=== PATIENT | male | born 1935 | race Caucasian/White ===

== ENCOUNTER 2016-12-11 06:07 | Inpatient (IN) ==
[2016-12-11] MEDS ORDERED: ASPIRIN PO STA (06:18)
[2016-12-11 06:35] LABS: MANUAL DIFF NEEDED? NO
[2016-12-11 06:40] LABS: BASO% 0.3 % (0.0-0.8); EOS# 0.14 X1000 (0.0-0.7); EOS% 1.2 % (0.0-10.0); HEMATOCRIT 42.2 % (42.0-52.0); HEMOGLOBIN 14.5 g/dL (14.0-18.0); LYMPH# 2.78 X1000 (1.2-3.4); LYMPH% 23.8 % (20.5-51.1); MCH 32.7 PG (27-31); MCHC 34.4 g/dL (33-37); MONO# 1.21 X1000 (0.11-0.59); MONO% 10.4 % (1.7-9.3); MPV 10.5 FL (7.4-10.4); NEUT% 64.3 % (42.2-75.2); PLT 130 X1000 (130-400); RBC 4.44 XMIL (4.7-6.1)
[2016-12-11 06:48] LABS: INR 0.94; PROTIME 9.8 Seconds (9.2-11.7); PTT 24.2 Seconds (22.0-36.0)
--- NOTE | 2016-12-11 06:57 | EKG Report ---
Test Performed on : 12/11/2016 06:05:12 AM Test Reason : Chest Pain Blood Pressure : / mmHG Vent. Rate : 059 BPM Atrial Rate : 059 BPM P-R Int : 174 ms QRS Dur : 092 ms QT Int : 416 ms P-R-T Axes : 051 069 056 degrees QTc Int : 411 ms Sinus bradycardia. Otherwise normal ECG When compared with ECG of 12-JUL-2011 21:36, No significant change was found Unconfirmed Result
[2016-12-11 07:00] LABS: AGAP 14; ALBUMIN 3.5 g/dL (3.5-5.0); ALKALINE PHOSPHATASE 71 U/L (32-122); BUN 21 mg/dL (8-22); CALCIUM 9.5 mg/dL (8.8-10.2); CHLORIDE 103 mmol/L (98-107); CK PROFILE 28 U/L (24-204); COSMO 288; GOT 21 U/L (10-34); GPT 29 U/L (10-44); LIPASE 43 U/L (13-60); MAGNESIUM 2.1 mg/dL (1.5-2.7); POTASSIUM 4.4 mmol/L (3.5-5.1); SODIUM 142 mmol/L (136-145); TCO2 25 mmol/L (25-35); TOTAL BILIRUBIN 0.53 mg/dL (0.20-1.00); TOTAL PROTEIN 6.7 g/dL (6.3-8.3)
--- NOTE | 2016-12-11 07:09 | Diag Imaging Result Doc PS360 ---
EXAM: CHEST-PORTABLE HISTORY: CP TECHNIQUE: Portable upright COMPARISON: 07/12/2011 FINDINGS: The lungs are well expanded. The heart is not enlarged. The vessels are not distended. No pneumonia. No pleural effusions identified. There calcified mediastinal nodes. No free air beneath the diaphragm. IMPRESSION: Negative chest. Electronically signed by Brian Palacios 12/11/2016 7:07 AM
[2016-12-11 07:23] LABS: URINE MICRO REVIEW NEEDED? NO; URINE SOURCE CLEAN CATCH
[2016-12-11 07:26] LABS: BILIRUBIN URINE NEGATIVE (NEGATIVE); BLOOD URINE NEGATIVE (NEGATIVE); COLOR YELLOW; GLUCOSE URINE NEGATIVE (NEGATIVE); LEUKOCYTES URINE SMALL (NEGATIVE); NITRITE URINE NEGATIVE (NEGATIVE); PROTEIN URINE TRACE mg/dL (NEGATIVE); TURBIDITY URINE HAZY (CLEAR); UROBILINOGEN URINE NORMAL (NORMAL)
[2016-12-11 07:27] LABS: UR EPITHELIAL CELLS <10 /HPF (<10); URINE BACTERIA NEGATIVE /HPF; URINE CULTURE NEEDED? YES; URINE RBC <10 /HPF (<10); URINE WBC <10 /HPF (<10)
[2016-12-11] MEDS ORDERED: NITROGLYCERIN TOP ONE (07:37)
--- NOTE | 2016-12-11 07:38 | PROVIDER DOCUMENTATION ---
HPI-Chest Pain - General Chief Complaint: Shoulder Pain Stated Complaint: CP Time Seen by Provider: 12/11/16 06:09 Source: patient, family Allergies/Adverse Reactions: Patient Allergies Allergy/AdvReac Type Severity Reaction Status Date / Time Penicillins Allergy SWELLING Verified 12/11/16 06:21 Home Medications: Home Medication List Medication Instructions Recorded Confirmed Last Taken Type Levothyroxine Sodium 50 mcg PO DAILY 12/11/16 12/11/16 12/10/16 History [Levothyroxine Sodium] - History of Present Illness-CP Nature of Presenting Problem: 81 yo M reports work up at 4AM with b/l shoulder joint pain, but his L sided CP started afterwards when he got up and took his dog out. Pt was standing in his yard when the CP started, diaphoretic with heart racing. No LOC and no fall. No cardiac history. Normal stress test X 5 years ago. Pt is deaf since childhood. Location: reports: shoulder, other (See above) Chest Pain Radiation: reports: no radiation Quality of Pain: reports: aching, pressure Severity in ED: mild, moderate Onset/Duration: 1-3 hours ago Timing: still present, improving Context/Activities at Onset: reports: none, light activity Modifying Factors: improves with: nothing Associated Symptoms: reports: diaphoresis, fatigue, weakness. denies: abdominal pain, edema, nausea, shortness of breath, vomiting Nitro Today/Relief: provided by ED Aspirin Treatment Today: provided by ED Prior Chest Pain/Cardiac Workup: reports: stress test Similar Symptoms Previously?: No Recently Seen Here or By Another Healthcare Provider: No Review of Systems - Adult - REVIEW OF SYSTEMS - ADULT Constitutional: reports: see venus BOOGIE. denies: chills, fever Eyes: reports: no symptoms reported Ears, Nose, Mouth & Throat: reports: no symptoms reported Cardiovascular: reports: chest pain. denies: heart murmur, poor circulation, syncope Respiratory: reports: no symptoms reported Gastrointestinal: reports: no symptoms reported Genitourinary: reports: no symptoms reported Musculoskeletal: reports: no symptoms reported Integumentary: reports: no symptoms reported Neurological: reports: no symptoms reported Psychiatric: reports: no symptoms reported Endocrine: reports: no symptoms reported Hematologic/Lymphatic: reports: no symptoms reported Allergic/Immunologic: reports: no symptoms reported All Other Systems: Reviewed and Negative Past History - Adult - PAST MEDICAL HISTORY-ADULT Review of Records: reports: Old Records Reviewed, Nursing Assessment Review, Medications Reviewed Major Childhood Illnesses: reports: denies history Physical Exam-General - PHYSICAL EXAM-ADULT Initial Vital Signs Reviewed: Yes - CONSTITUTIONAL General Appearance: appears well, alert, no apparent distress - EYES Eyes: PERRL/EOMI, pink conjunctivae - HEAD, EARS, NOSE, MOUTH & THROAT HENMT: normocephalic/atraumatic, moist mucous membranes - NECK Neck: non-tender, full range of motion - RESPIRATORY Respiratory: chest non-tender, lungs clear, normal breath sounds, no pleuratic chest pain, no respiratory distress, no accessory muscle use - CARDIOVASCULAR Cardiovascular: normal peripheral pulses, regular rate, rhythm, no edema - GASTROINTESTINAL (ABDOMEN) Abdominal Exam: normal bowel sounds, non tender, soft, no organomegaly - MUSCULOSKELETAL Back Exam: normal inspection, no CVA tenderness, no vertebral tenderness Extremity: normal range of motion, non-tender, normal gait, normal inspection - SKIN Integumentary: normal color, normal turgor - NEUROLOGIC Neurologic: no motor/sensory deficits - PSYCHIATRIC Psych/Mental Status: normal mood/affect, normal thought content, normal thought process, oriented x 3 Progress - PLAN OF CARE/RESULTS Progress/Plan/Lab Results: Vital Signs - 8 hr 12/11/16 06:11 12/11/16 06:19 12/11/16 07:00 Temperature 97.6 F Pulse Rate 63 62 62 Respiratory Rate 16 16 15 Blood Pressure 132/79 132/79 125/68 O2 Sat by Pulse Oximetry 100 99 99 Laboratory Results - last 24 hr 12/11/16 12/11/16 12/11/16 06:20 06:20 06:20 WBC 11.68 H RBC 4.44 L Hgb 14.5 Hct 42.2 MCV 95.0 MCH 32.7 H MCHC 34.4 RDW Std Deviation 15.9 H Plt Count 130 MPV 10.5 H Neut % (Auto) 64.3 Lymph % (Auto) 23.8 Robeson % (Auto) 10.4 H Eos % (Auto) 1.2 Baso % (Auto) 0.3 Neut # (Auto) 7.52 H Lymph # (Auto) 2.78 Robeson # (Auto) 1.21 H Eos # (Auto) 0.14 Baso # (Auto) 0.03 PT INR PTT (Actin FS) Sodium 142 Potassium 4.4 Chloride 103 Carbon Dioxide 25 Anion Gap 14 BUN 21 Creatinine 0.8 Estimated GFR/1.73 m2 > 60 BUN/Creatinine Ratio 26 Glucose 140 H Calculated Osmolality 288 Calcium 9.5 Magnesium 2.1 Total Bilirubin 0.53 AST 21 ALT 29 Alkaline Phosphatase 71 Creatine Kinase 28 Troponin T Dcy-K-Miztgnbwvul Pept 105 Total Protein 6.7 Albumin 3.5 Globulin 3.2 Albumin/Globulin Ratio 1.1 Lipase 43 Urine Source Urine Color Urine Turbidity Urine pH Ur Specific [place] Urine Protein Ur Glucose (Stick) Ur Ketones (Stick) Urine Blood Urine Nitrite Urine Bilirubin Urobilinogen Dipstick Urine Leukocytes Urine WBC (Auto) Urine RBC (Auto) U Epithel Cells (Auto) Urine Bacteria (Auto) 12/11/16 12/11/16 12/11/16 06:20 06:20 07:06 WBC RBC Hgb Hct MCV MCH MCHC RDW Std Deviation Plt Count MPV Neut % (Auto) Lymph % (Auto) Rob[place] % (Auto) Eos % (Auto) Baso % (Auto) Neut # (Auto) Lymph # (Auto) Robeson # (Auto) Eos # (Auto) Baso # (Auto) PT 9.8 INR 0.94 PTT (Actin FS) 24.2 Sodium Potassium Chloride Carbon Dioxide Anion Gap BUN Creatinine Estimated GFR/1.73 m2 BUN/Creatinine Ratio Glucose Calculated Osmolality Calcium Magnesium Total Bilirubin AST ALT Alkaline Phosphatase Creatine Kinase Troponin T < 0.010 Lso-F-Lflnbrqvzta Pept Total Protein Albumin Globulin Albumin/Globulin Ratio Lipase Urine Source CLEAN CATCH Urine Color YELLOW Urine Turbidity HAZY Urine pH 7.0 Ur Specific [place] 1.020 Urine Protein TRACE A Ur Glucose (Stick) NEGATIVE Ur Ketones (Stick) NEGATIVE Urine Blood NEGATIVE Urine Nitrite NEGATIVE Urine Bilirubin NEGATIVE Urobilinogen Dipstick NORMAL Urine Leukocytes SMALL A Urine WBC (Auto) <10 Urine RBC (Auto) <10 U Epithel Cells (Auto) <10 Urine Bacteria (Auto) NEGATIVE Orders Category Date Time Status Cardiac Monitoring DIRECTED Care 12/11/16 06:18 Active Saline Loc NOW Care 12/11/16 06:18 Active CHEST-PORTABLE [RAD] Stat Exams 12/11/16 06:18 Completed CBC WITH ELECTRONIC DIFF [HEME] Stat Lab 12/11/16 06:20 Completed CK PROFILE [SP CHEM] Stat Lab 12/11/16 06:20 Completed COMPREHENSIVE METABOLIC PANEL [CHEM] Stat Lab 12/11/16 06:20 Completed D-DIMER [CHEM] Stat Lab 12/11/16 06:20 Received LIPASE [CHEM] Stat Lab 12/11/16 06:20 Completed MAGNESIUM [CHEM] Stat Lab 12/11/16 06:20 Completed PRO B-NATRIURETIC PEPTIDE Stat Lab 12/11/16 06:20 Completed PROTIME WITH INR [COAG] Stat Lab 12/11/16 06:20 Completed PTT [COAG] Stat Lab 12/11/16 06:20 Completed TROPONIN T Stat Lab 12/11/16 06:20 Completed UA NIMS W/REFLEX CULT [URINALYSIS] Stat Lab 12/11/16 07:06 Completed Aspirin Med 12/11/16 06:18 Discontinued 325 mg PO STAT STA EKG [EKG] Stat Ther 12/11/16 06:18 Draft Result Diagrams: 12/11/16 06:20 12/11/16 06:20 - EKG 1 EKG Interpretation (*Must complete 3 of following elements*): Normal Rate: 59 Warren: normal QRS: normal MT Interval: normal ST Wave: normal - XRAY 1 XRAY Study: Chest Impression: Normal - CONSULTS/PCP/HOSPITALIST Notification #1 *Consult/PCP/Hospitalist*: Lore/Dr. Viveros Time Discussed: 07:44 Consult Disposition: Will see in ED, Admit Departure - Departure Date of Disposition Decision: 12/11/16 Time of Disposition Decision: 07:43 DIAGNOSIS: Chest pain Qualifiers: Chest pain type: precordial pain Qualified Code(s): R07.2 - Precordial pain Disposition: ADMITTED INPATIENT 09 Certified Medical Emergency: Emergent Condition: Stable Referrals and Follow-Ups: Sven Rosado MD [Primary Care Provider] - - Critical Care Note This patient required my direct & personal management of CC.: No
[2016-12-11] MEDS ORDERED: NITROGLYCERIN SL PRN (11:05)
[2016-12-11] MEDS ORDERED: TYLENOL PO PRN (11:05)
[2016-12-11] MEDS ORDERED: ZOFRAN IV PRN (11:05)
[2016-12-11] MEDS ORDERED: MORPHINE IV PRN (11:05)
[2016-12-11] MEDS: PRILOSEC PO SCH ×2 (11:59→20:04)
[2016-12-11] MEDS: SYNTHROID PO SCH (12:00)
[2016-12-11] MEDS: ASPIRIN PO SCH (12:00)
--- NOTE | 2016-12-11 14:01 | HISTORY AND PHYSICAL ---
HISTORY OF PRESENT ILLNESS: 81-year-old been pretty healthy. PAST MEDICAL HISTORY: History of hypothyroidism recently diagnosed sounds like primary hypothyroidism, started on thyroid supplement. Only other medical history he has had right ankle plate 9 screws for right ankle fracture. He has had tonsillectomy and adenoidectomy, he has bilateral cataracts done. He said that this morning he woke up about 4 in the morning. Both his shoulders felt tight. Reva some tightness and pressure in his chest. It did not seem to get much better. He went up and got up and walked the dog about 5 and he started breaking out in a sweat and feeling a little bit lightheaded. He said that the pressure and the pain radiated to the left shoulder. No radiation to his jaw. He has not had this kind of pain before. SOCIAL HISTORY: Negative for alcohol. Negative for tobacco. He might drink a glass of wine once a month. He is retired. Has done multiple things. Was born in [place]. 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 His girlfriend was at the bedside. REVIEW OF SYSTEMS: General: No weight gain, loss. No fever or chills. HEENT: Unremarkable. Respiratory: No increased work of breathing or dyspnea. Cardiovascular: As above. Endocrinologic/Hematologic: No specific history. PHYSICAL EXAMINATION: VITAL SIGNS: Temperature 97.6 degrees, pulse 52, respirations blood pressure 92/55. HEENT: Pupils are equal, round, CVP less than 6 cm. LUNGS: Clear in all lung quiroz. CARDIOVASCULAR: Regular rhythm, rate without murmur or S3. ABDOMEN: Soft. SKIN: Warm and dry. Weight 163 pounds. Height 5 feet 6 inches. LABS: White blood cell count 11,680, hematocrit 42, platelet count 130,000. Sodium 142, potassium 4.4, chloride 103, bicarb 25, BUN 21, creatinine 0.8, AST 21, ALT 29, alkaline phosphatase 79, PT was 9.8, PTT was 24. Urinalysis unremarkable. Chest x-ray negative chest. EKG unremarkable. ASSESSMENT/PLAN: Atypical chest pain. We need to make sure this is not coronary insufficiency. Will check serial cardiac enzymes and EKG. Ask cardiology to evaluate. Suspect they will want to pursue a nuclear myocardial perfusion scan. We will check his thyroid functions. cc: Chava Viveros MD
--- NOTE | 2016-12-11 14:55 | CONSULTATION ---
DATE OF CONSULTATION: 12/11/2016 INDICATION: Chest pain. HISTORY OF PRESENT ILLNESS: Mr. Holguin is a 81-year-old white male with a history of hypothyroidism. This morning he woke up around 4 o'clock in the morning with some stabbing type discomfort in his chest, radiating across his chest from shoulder to shoulder. It persisted and around 5 o'clock in the morning he went out to take his dog for a walk. This did not exacerbate his symptoms at all. He continued to have discomfort and ultimately presented to the ER. He says he still has some mild discomfort that is again stabbing in nature and very mild with no exertional component to it. He has thus far had negative cardiac enzymes. PAST MEDICAL HISTORY: Significant for hypothyroidism. SOCIAL HISTORY: No tobacco abuse. He drinks roughly 1 glass of alcohol per month. 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 REVIEW OF SYSTEMS: A 10 system review of systems is negative except for those things mentioned in the HPI. PHYSICAL EXAMINATION: Vital signs: He is afebrile. Heart rate is 68, blood pressure 159/90. General: In no acute distress. HEENT: Oropharynx is moist. Normal dentition. Eye examination shows pink conjunctivae, white sclerae. Neck: No obvious thyromegaly or thyroid tenderness. Cardiovascular: He is in a regular rate and rhythm. He has no murmurs. No S3. No S4. He has no lower extremity edema. Chest: Clear bilaterally. No increased work of breathing. Abdomen: Soft, nontender, nondistended. No obvious organomegaly. Skin Exam: Warm and dry throughout without any rashes. Neurological: Moving all extremities well. Cranial nerves 2 through 12 are intact without any sensation deficits. Psychiatric: Alert, oriented, and pleasant. He has normal mood and affect. PERTINENT DATA: Chest x-ray is unremarkable. He had an electrocardiogram demonstrating sinus rhythm. No ischemic changes. No evidence of old infarct. His laboratory data shows an unremarkable CBC with the exception of a mild elevation in his white count 11.68. INR is 0.94. Chemistry is unremarkable with negative cardiac enzymes. ASSESSMENT: Atypical chest pain. PLAN: We will proceed with myocardial perfusion imaging in the morning. He has already been administered an aspirin. If his enzymes elevate then we may need to consider a cardiac catheterization. cc: Alan Conner MD
--- NOTE | 2016-12-11 16:03 | ECHO REPORT ---
ORDER DATE: 12/11/2016 ECHOCARDIOGRAPHIC MEASUREMENTS: 1. Interventricular septum 1.5. 2. Left ventricular posterior wall 1.2. 3. Diastolic diameter 3.2. 4. Left atrium 3.5. 5. Aorta 3.3. SUMMARY OF 2-DIMENSIONAL IMAGIN. Technically suboptimal study. Definity was used to assess left ventricular systolic function. Pulmonic valve not well visualized. Mitral valve was normal. Tricuspid valve was normal. 2. Aortic valve leaflets were trileaflet. There is mild mitral regurgitation. 3. Mild tricuspid regurgitation. Peak velocity across the tricuspid valve was 2.9 m/sec. Pulmonary artery systolic pressure of 43 mmHg. There is no aortic stenosis or regurgitation. Normal left ventricular cavity size. Definity was used to assess left ventricular systolic function. Left ventricular ejection fraction estimated at 65-70%. There is mild left ventricular hypertrophy. 4. There is no pericardial effusion or obvious intracardiac mass or thrombus seen. cc: MD Deirdre Joshi CRNP
[2016-12-11] MEDS ORDERED: LOVENOX SUBQ ONE (21:03)
[2016-12-11] MEDS: LOPRESSOR PO SCH (21:28)
[2016-12-12 04:23] LABS: MANUAL DIFF NEEDED? NO
[2016-12-12 04:28] LABS: BASO% 0.2 % (0.0-0.8); EOS# 0.08 X1000 (0.0-0.7); EOS% 0.6 % (0.0-10.0); HEMATOCRIT 43.4 % (42.0-52.0); HEMOGLOBIN 14.6 g/dL (14.0-18.0); IMM GRAN# 0.03 X1000 (0.0-0.04); IMM GRAN% 0.2 % (0.0-0.5); LYMPH# 1.75 X1000 (1.2-3.4); LYMPH% 13.3 % (20.5-51.1); MCH 31.8 PG (27-31); MCHC 33.6 g/dL (33-37); MCV 94.6 FL (81-99); MONO# 1.33 X1000 (0.11-0.59); MONO% 10.1 % (1.7-9.3); MPV 10.8 FL (7.4-10.4); NEUT% 75.6 % (42.2-75.2); PLT 147 X1000 (130-400); RBC 4.59 XMIL (4.7-6.1)
[2016-12-12 04:36] LABS: INR 0.98; PROTIME 10.3 Seconds (9.2-11.7); PTT 33.4 Seconds (22.0-36.0)
[2016-12-12 04:54] LABS: AGAP 11; ALBUMIN 3.5 g/dL (3.5-5.0); ALKALINE PHOSPHATASE 68 U/L (32-122); BUN 15 mg/dL (8-22); CALCIUM 9.7 mg/dL (8.8-10.2); CHLORIDE 101 mmol/L (98-107); COSMO 280; GOT 129 U/L (10-34); GPT 38 U/L (10-44); MAGNESIUM 2.1 mg/dL (1.5-2.7); POTASSIUM 4.9 mmol/L (3.5-5.1); SODIUM 139 mmol/L (136-145); TCO2 27 mmol/L (25-35); TOTAL BILIRUBIN 0.45 mg/dL (0.20-1.00); TOTAL PROTEIN 6.2 g/dL (6.3-8.3)
[2016-12-12 05:20] LABS: FREE T4 1.26 ng/dL (0.93-1.70)
[2016-12-12] MEDS: SYNTHROID PO SCH (06:06)
--- NOTE | 2016-12-12 07:23 | EKG Report ---
Test Performed on : 12/12/2016 06:19:53 AM Test Reason : chest pain Blood Pressure : / mmHG Vent. Rate : 067 BPM Atrial Rate : 067 BPM P-R Int : 180 ms QRS Dur : 088 ms QT Int : 396 ms P-R-T Axes : 050 065 065 degrees QTc Int : 418 ms Normal sinus rhythm. Normal ECG When compared with ECG of 11-DEC-2016 06:05, (Unconfirmed) No significant change was found Confirmed by Elizabeth Pittman MD ([id number]) on 12/12/2016 12:28:26 PM
[2016-12-12 07:39] VITALS: BP 121/65
[2016-12-12] MEDS ORDERED: LOVENOX SUBQ SCH (08:00)
--- NOTE | 2016-12-12 08:06 | PROGRESS NOTE ---
DATE: 12/12/2016 SUBJECTIVE: He has not had any further chest pain. Cardiac enzymes did go up, however though. His troponin went up to 1.5, CPK unremarkable. His creatinine is 0.8 so I think the plan is for a heart catheterization. EKG this morning reveals no suspicious ST-segment changes. Normal EKG. PHYSICAL EXAMINATION: Vital Signs: Temperature 98.2 degrees, pulse 60, respirations 18, blood pressure 117/59. CVP less than 6 cm. Lungs: Clear in all lung quiroz. Cardiovascular Examination: Regular rhythm and rate without murmur or S3. Abdomen: Soft. Skin: Warm and dry. Extremities: No edema. Is and Os: Urine output was 800 mL. ASSESSMENT AND PLAN: 1. Chest pain, elevation of troponin. Pursue left heart catheterization. Dr. Alan Conner on the case. 2. Blood pressures look good. Remains in sinus rhythm. 3. Serum creatinine 0.8. 4. Good urine output. 5. Review of orders. He is on Lovenox which was started last night at 1 mg/kg. cc: Chava Viveros MD
--- NOTE | 2016-12-12 08:29 | PROGRESS NOTE ---
DATE: 12/12/2016 SUBJECTIVE: Mr. Holguin has not had any issues overnight regarding chest pain. PHYSICAL EXAMINATION: Vital signs: Afebrile. Heart rate is in the 60s to 70s. Blood pressure 121/65. General: He is in no acute distress. Cardiovascular: He is in a regular rate and rhythm. He has no murmurs. He has no S3. No lower extremity edema. Chest: Clear bilaterally. No increased work of breathing. Abdomen: Soft, nontender, nondistended. PERTINENT DATA: His white count is 13, hematocrit is 43, platelet count 147,000. His INR 0.98. Sodium is 139, potassium 4.9, BUN 15, creatinine 0.8. His initial troponin was less than 0.010. Most recent has trended up to as high as 1.5. His LDL was 151. His TSH is 1.7. He had an EKG today demonstrating normal sinus rhythm. No evidence of infarct. No ischemic type changes. His echocardiogram from yesterday shows a normal ejection fraction, mild to moderate LVH. No obvious wall motion abnormalities were identified. No significant valvular abnormalities. ASSESSMENT: Non ST-elevation myocardial infarction. PLAN: Patient has been on aspirin. He has been initiated on a beta-susana as well. He is due for a cardiac catheterization today given that he has had a [id number] NM. Risks, benefits, and alternatives to this procedure have been explained to the patient and he agrees to proceed. I will initiate him on a low dose of VANESA, lisinopril 5 mg at bedtime. In addition, I will start him on Lipitor 80 mg daily. cc: Alan Conner MD
[2016-12-12] MEDS ORDERED: NS 1,000 ML ONE (08:33)
[2016-12-12] MEDS ORDERED: LIPITOR PO SCH (09:00)
[2016-12-12] MEDS ORDERED: NS 1,000 ML IV SCH (09:00)
[2016-12-12] MEDS ORDERED: HEPARIN 1000 UNITS/NS 2,000 UNIT/1,000 ML IV.SOLN ONE (09:07)
[2016-12-12] MEDS: ASPIRIN PO SCH (09:09)
[2016-12-12] MEDS: LOPRESSOR PO SCH (09:10)
[2016-12-12] MEDS: PRILOSEC PO SCH (09:10)
[2016-12-12] MEDS ORDERED: NITROGLYCERIN ONE (09:13)
[2016-12-12] MEDS ORDERED: MORPHINE ONE (09:39)
[2016-12-12] MEDS ORDERED: VERSED ONE (09:39)
--- NOTE | 2016-12-12 17:23 | DISCHARGE SUMMARY ---
ADMISSION DATE: 12/11/2016 DISCHARGE DATE: 12/12/2016 HISTORY AND HOSPITAL COURSE: A 81-year-old who has been pretty healthy. Was admitted on 12/11/2016. He has a history of hypothyroidism, recently diagnosed. Sounds like primary hypothyroidism. Started on thyroid supplement. Only other medical history, he had a right ankle, I think fracture, which required 9 screws and a plate. He has had a tonsillectomy and adenoidectomy, bilateral cataracts done. He said in the morning he woke up, about 4:00 in the morning. Shoulders felt tight. [place] some tightness and pressure in the chest. Did not seem to get much better. Got up and walked his dog. About 5 o'clock, he started breaking out in sweat, and felt a little bit lightheaded. Had pressure and pain that radiated to his left shoulder. No radiation to his jaw. He has not had this kind of pain before. Was admitted. Serial cardiac enzymes. The troponin 2nd set elevated. [place] like his EKG showed no significant ST segment changes, but troponin definitely elevated. He went for a left heart catheterization. Following heart catheterization, had significant lesions. Cardiology wanted to send him to [place], felt that he was having a non ST elevation myocardial infarction. He was on beta susana and aspirin. Discharged to [facility]. cc: Chava Viveros MD
[2016-12-12] MEDS ORDERED: PRINIVIL PO SCH (21:00)
--- NOTE | 2016-12-15 13:46 | Diag Imaging Result Document ---
PROCEDURE NAME: MYOCARDIAL PERFU SCAN, REST - 12/11/2016 PROCEDURE: Resting Cardiolite stress test. 27.5 mCi of Cardiolite was injected. Gated SPECT images were obtained in standard views. This was a resting scan done. Images revealed large size, severe grade defect in the lateral wall. Further testing was not performed. Left ventricular ejection fraction 72%. Lateral wall hypokinesis. CONCLUSIONS: 1. Resting scan revealed a large defect in the lateral wall severe grade. 2. Left ventricular ejection fraction 72%. Lateral wall hypokinesis noted. cc: MD Deirdre Joshi CRNP
--- NOTE | 2017-01-17 22:44 | CARDIAC CATH REPORT ---
PROCEDURE NAME: - PROCEDURE PERFORMED: Left heart catheterization with selective coronary angiography and left ventriculography. INDICATIONS: Recent [id number] myocardial infarction. ENTRY SITE: Right femoral artery, right femoral vein. CATHETERS USED: 5-Cuban JL4, 3DRC, and angled pigtail. TECHNIQUE: After intravenous sedation with morphine and Versed, local anesthesia with lidocaine was applied over right femoral artery. Arterial access was established with placement of a 5- Cuban sheath in the right femoral artery using modified Seldinger technique. Selective coronary angiography was performed. Thereafter left heart catheterization and left ventriculography were performed. Upon completion of procedure, arterial sheath was left in place in anticipation of percutaneous coronary intervention to follow. The patient tolerated diagnostic cardiac catheterization/coronary angiography procedure without apparent complications. FINDINGS: Hemodynamics: Aortic pressure 116/84. Left ventricular pressure 114/EDP of 24. COMMENTS: On hemodynamics, there is no significant gradient across the aortic valve demonstrated on pullback from left ventricle. ANGIOGRAPHY: 1. Left ventriculogram. Left ventricle is of normal size without wall motion abnormality evident on NG projection. Estimated left ventricular ejection fraction approximately 60%. There is no significant mitral regurgitation. 2. Left main coronary artery. The left main coronary artery demonstrates mild (approximately 20%) distal narrowing which extends into ostium of left anterior descending coronary artery. 3. Left anterior descending coronary artery. The left anterior descending coronary artery is free of significant coronary stenosis. Diagonal branch demonstrates a moderate (50%) very proximal/near ostial stenosis. 4. Ramus intermedius. Ramus intermedius branch is free of significant coronary artery stenosis. 5. Left circumflex coronary artery. The left circumflex coronary artery demonstrates a moderate to severe (70%) stenosis proximally. Obtuse marginal demonstrates a very severe (greater than 95%) stenosis proximally. 6. Right coronary artery. The right coronary artery is small and nondominant. There is a severe (greater than 90%) stenosis proximally in the small nondominant right coronary. CONCLUSIONS: 1. Elevated left ventricular end-diastolic pressure 24 mmHg. 2. Normal left ventricular systolic function without wall motion abnormality evident. 3. Multivessel coronary atherosclerosis as described with moderate to severe stenosis proximally in left circumflex coronary artery, very severe stenosis proximally in obtuse marginal, severe stenosis proximally in nondominant right coronary artery, and moderate stenosis proximally in diagonal branch. RECOMMENDATIONS: Consider percutaneous coronary intervention on left circumflex coronary artery and obtuse marginal. cc: Johny Delcid MD
== END 2016-12-12 11:15 | disposition short-term general hospital (02) ==
LOC: ED 06:07 → SUATTDRO 08:50 → EDIPHOLD 08:50 → 3S 10:31
PROVIDERS: ATTEND Emergency Medicine